=== PATIENT | male | born 1970 | race American Indian/Alaskan Native ===

== ENCOUNTER 2016-07-09 19:56 | Emergency (ER) | payer SELFPAY ==
[~2016-07-09] VITALS: Ht 180.3 cm; Wt 114.4 kg
[2016-07-09 19:58] VITALS: BP 178/108
[2016-07-09] MEDS ORDERED: HYDR12.53 PO (20:29)
[2016-07-09] MEDS ORDERED: LISI40TA PO (20:29)
== END 2016-07-09 21:22 | disposition home or self-care (01) ==
LOC: ED 20:49
DX: Z76.0 Encounter for issue of repeat prescription (principal); I10 Essential (primary) hypertension; R11.2 Nausea with vomiting, unspecified; G89.29 Other chronic pain; M54.6 Pain in thoracic spine; J45.909 Unspecified asthma, uncomplicated; Z90.49 Acquired absence of other specified parts of digestive tract
CPT/HCPCS: 99283

== ENCOUNTER 2017-01-24 19:08 | Inpatient (IN) | payer SELFPAY ==
[~2017-01-24] VITALS: Ht 180.3 cm; Wt 115.1 kg
[~2017-01-24 19:08] MED LIST: HYDR12.53 PO; LISI40TA PO
[2017-01-24] MEDS ORDERED: ASPIRIN 81 MG TABLET CHEW PO ONE (19:30)
[2017-01-24] MEDS ORDERED: ASPIRIN 81 MG TABLET CHEW ONE ×2 (19:32→19:37)
[2017-01-24] MEDS ORDERED: LISI-420 PO (19:48)
[2017-01-24 20:08] LABS: BLOOD UREA NITROGEN 15 mg/dL (7-18)
[2017-01-24 20:14] LABS: IS PT STATUS REG ER OR PRE ER? YES
[2017-01-24 20:16] LABS: ASPARTATE AMINO TRANSFERASE 92 U/L (15-37)
[2017-01-24 20:18] LABS: HEMATOCRIT 47.2 % (39.2-51.8); HEMOGLOBIN 16.4 g/dL (13.7-18.0); WHITE BLOOD COUNT 6.3 x10^3/uL (3.4-10)
[2017-01-24] MEDS ORDERED: HEPARIN 25,000 UNITS/500ML PMX 500 ML IV PRN ×3 (21:00→22:30)
[2017-01-24] MEDS ORDERED: HEPARIN 5,000 UNITS/ML, 1ML IV ONE (21:00)
[2017-01-24] MEDS ORDERED: METOPROLOL SUCCINATE 50 MG TAB.ER.24H PO STA (21:00)
[2017-01-24] MEDS ORDERED: HEPARIN 5,000 UNITS/ML, 1ML IV PRN ×2 (21:00→22:30)
[2017-01-24] MEDS ORDERED: HEPARIN 25,000 UNITS/500ML PMX 500 ML ONE (21:13)
[2017-01-24] MEDS ORDERED: HEPARIN 5,000 UNITS/ML, 1ML ONE (21:13)
[2017-01-24] MEDS ORDERED: morphine SULFATE 10 MG/ML, 1ML IVPush PRN (22:00)
[2017-01-24] MEDS ORDERED: ACETAMINOPHEN 325 MG TABLET PO PRN (22:00)
[2017-01-24] MEDS ORDERED: hydrALAzine 20 MG/ML, 1ML IV PRN (22:00)
[2017-01-24] MEDS: SODIUM CHLORIDE FLUSH 10ML SYR IVF SCH (22:00)
[2017-01-24] MEDS ORDERED: NITROGLYCERIN 0.4 MG BOTTLE (25 TABS) SL PRN (22:00)
[2017-01-24] MEDS ORDERED: ONDANSETRON 2MG/ML, 2ML IVPush PRN (22:00)
[2017-01-24] MEDS ORDERED: POLYETHYLENE GLYCOL 17 GM PACKET PO PRN (22:00)
[2017-01-24] MEDS ORDERED: BISACODYL 10 MG SUPP PR PRN (22:00)
[2017-01-24 22:25] VITALS: BP 160/100
[2017-01-25 02:00] VITALS: BP 125/87
[2017-01-25 02:09] LABS: IS PT STATUS REG ER OR PRE ER? NO
[2017-01-25 03:55] LABS: HEMATOCRIT 46.5 % (39.2-51.8); HEMOGLOBIN 15.9 g/dL (13.7-18.0); WHITE BLOOD COUNT 7.1 x10^3/uL (3.4-10)
[2017-01-25 04:07] LABS: ASPARTATE AMINO TRANSFERASE 60 U/L (15-37); BLOOD UREA NITROGEN 16 mg/dL (7-18)
[2017-01-25] MEDS ORDERED: FLU VACC QS2017-18 (36MOS+) UP/PF 0.5 ML IM-VACC ONE (06:30)
[2017-01-25] MEDS: CARVEDILOL 12.5 MG TABLET PO SCH ×3 (06:33→20:29)
[2017-01-25] MEDS: ASPIRIN 81 MG TABLET EC PO SCH (06:33)
[2017-01-25 08:02] LABS: IS PT STATUS REG ER OR PRE ER? NO
[2017-01-25 08:15] VITALS: BP 136/97
[2017-01-25] MEDS: SODIUM CHLORIDE FLUSH 10ML SYR IVF SCH ×2 (09:00→21:00)
[2017-01-25] MEDS: SENNA/DOCUSATE TABLET PO SCH (09:00)
[2017-01-25] MEDS: LISINOPRIL 20 MG TABLET PO SCH (11:54)
[2017-01-25] MEDS: HYDROCHLOROTHIAZIDE 12.5 MG CAPSULE PO SCH (11:54)
[2017-01-25] MEDS ORDERED: SODIUM CHLORIDE 0.9% 500 ML IV SCH (12:00)
[2017-01-25] MEDS ORDERED: ALBUTEROL/IPRATROPIUM 2.5MG/0.5MG, 3 ML ONE (13:26)
[2017-01-25] MEDS ORDERED: ALBUTEROL/IPRATROPIUM 2.5MG/0.5MG, 3 ML NPPB PRN (13:30)
[2017-01-25] MEDS ORDERED: TICAGRELOR 90 MG TABLET ONE (14:15)
[2017-01-25] MEDS ORDERED: MIDAZOLAM 1 MG/ML, 5ML ONE (14:15)
[2017-01-25] MEDS ORDERED: FENTANYL PF 100 MCG/2ML ONE (14:15)
[2017-01-25] MEDS ORDERED: BIVALIRUDIN 250 MG ONE (14:15)
[2017-01-25] MEDS ORDERED: VERAPAMIL 2.5 MG/ML, 2ML ONE (14:15)
[2017-01-25] MEDS ORDERED: LIDOCAINE 2%, 20ML ONE (14:16)
[2017-01-25 14:20] VITALS: BP 116/81
[2017-01-25 18:26] VITALS: BP 106/58
[2017-01-26 01:00] VITALS: BP 131/85
[2017-01-26 05:32] LABS: HEMATOCRIT 43.2 % (39.2-51.8); HEMOGLOBIN 14.8 g/dL (13.7-18.0)
[2017-01-26 05:41] LABS: BLOOD UREA NITROGEN 18 mg/dL (7-18)
[2017-01-26 05:46] LABS: ASPARTATE AMINO TRANSFERASE 55 U/L (15-37)
[2017-01-26 08:00] VITALS: BP 129/86
[2017-01-26] MEDS ORDERED: POTASSIUM CHLORIDE 20 MEQ TAB.ER.PRT PO ONE ×2 (08:00→09:30)
[2017-01-26] MEDS: CARVEDILOL 12.5 MG TABLET PO SCH (08:05)
[2017-01-26] MEDS: HYDROCHLOROTHIAZIDE 12.5 MG CAPSULE PO SCH (08:05)
[2017-01-26] MEDS: ASPIRIN 81 MG TABLET EC PO SCH (08:05)
[2017-01-26] MEDS: SODIUM CHLORIDE FLUSH 10ML SYR IVF SCH (08:05)
[2017-01-26] MEDS: LISINOPRIL 20 MG TABLET PO SCH (08:06)
[2017-01-26] MEDS: SENNA/DOCUSATE TABLET PO SCH (08:06)
[2017-01-26] MEDS ORDERED: POTASSIUM CHLORIDE 20 MEQ TAB.ER.PRT PO SCH (08:30)
[2017-01-26] MEDS ORDERED: MAGNESIUM SULFATE PMX 2GM/50ML 50 ML IV ONE (08:30)
[2017-01-26] MEDS ORDERED: SPIRONOLACTONE 25 MG TABLET PO SCH (09:00)
[2017-01-26] MEDS ORDERED: SPIR25TA PO (09:21)
[2017-01-26] MEDS ORDERED: CARV12.543 PO (09:21)
[2017-01-26] MEDS ORDERED: SIMV5TAB5 PO (09:32)
[2017-01-26] MEDS ORDERED: PNEUMOCOCCAL 23 VACCINE IM-VACC ONE (13:00)
== END 2017-01-26 13:20 | disposition home or self-care (01) | DRG 287 ==
LOC: ED 20:52 → EDIP 21:00 → 5SO 22:04 → DCLOUNGE 01-26 12:59
PROVIDERS: ADMIT Family Medicine; ATTEND Family Medicine
PROC: 4A023N7 Measurement of Cardiac Sampling and Pressure, Left Heart, Percutaneous Approach (ICD-10-PCS; principal; 2017-01-25)
PROC: B2111ZZ Fluoroscopy of Multiple Coronary Arteries using Low Osmolar Contrast (ICD-10-PCS; 2017-01-25)
PROC: B2151ZZ Fluoroscopy of Left Heart using Low Osmolar Contrast (ICD-10-PCS; 2017-01-25)
DX: I11.0 Hypertensive heart disease with heart failure (principal); I42.8 Other cardiomyopathies; K76.1 Chronic passive congestion of liver; B15.9 Hepatitis A without hepatic coma; I16.9 Hypertensive crisis, unspecified; I50.20 Unspecified systolic (congestive) heart failure; G51.0 Bell's palsy; M54.9 Dorsalgia, unspecified; E78.1 Pure hyperglyceridemia; E87.6 Hypokalemia; F12.90 Cannabis use, unspecified, uncomplicated; F17.210 Nicotine dependence, cigarettes, uncomplicated; I10 Essential (primary) hypertension; I08.0 Rheumatic disorders of both mitral and aortic valves; J45.909 Unspecified asthma, uncomplicated; Z79.82 Long term (current) use of aspirin; Z79.899 Other long term (current) drug therapy; Z83.3 Family history of diabetes mellitus; Z91.14 Patient's other noncompliance with medication regimen; Z91.19 Patient's noncompliance with other medical treatment and regimen; Z90.49 Acquired absence of other specified parts of digestive tract; I51.7 Cardiomegaly
CPT/HCPCS: 36415; 70450; 80053; 80061; 80074; 83880; 84439; 84443; 84484; 85014; 85018; 85025; 85520; 90686; 90732; 93005; 93306; 93458; 94640; 96374; 99156; C1894; J0583; J1644; J2250; J3010; J3490; J3475; J7040; Q9967

== ENCOUNTER 2017-07-13 18:57 | Inpatient (IN) | payer OTHER ==
[~2017-07-13] VITALS: Ht 180.3 cm; Wt 111.6 kg
[~2017-07-13 18:57] MED LIST changes: +CARV12.543 PO; +LISI-420 PO; +SIMV5TAB5 PO; +SPIR25TA PO
[2017-07-13] MEDS ORDERED: ALBUTEROL HFA (19:21)
[2017-07-13] MEDS ORDERED: SODIUM CHLORIDE FLUSH 10ML SYR IVF ONE (19:30)
[2017-07-13 19:34] LABS: BASOPHILS # (AUTO) 0.02 x10^3/uL (0-0.1); BASOPHILS % (AUTO) 0 % (0-1); EOSINOPHILS # (AUTO) 0.18 x10^3/uL (0-0.4); EOSINOPHILS % (AUTO) 2 % (1-7); LYMPHOCYTES # (AUTO) 2.37 x10^3/uL (1-3.4); LYMPHOCYTES % (AUTO) 28 % (22-44); MD NO; MEAN CORPUSCULAR HEMOGLOBIN 30.4 pg (27.5-34.5); MEAN CORPUSCULAR HGB CONC 34.7 g/dL (33.2-36.2); MEAN CORPUSCULAR VOLUME 87.6 fL (81-97); MEAN PLATELET VOLUME 10.7 fL (7.4-10.4); MONOCYTES # (AUTO) 0.53 x10^3/uL (0.2-0.8); MONOCYTES % (AUTO) 6 % (2-9); NEUTROPHILS # (AUTO) 5.25 x10^3/uL (1.8-6.8); NEUTROPHILS % (AUTO) 63 % (42-75); PLATELET COUNT 177 x10^3/uL (130-400); RED BLOOD COUNT 5.37 x10^6/uL (4.38-5.82); RED CELL DISTRIBUTION WIDTH 13.5 % (9.4-14.8)
[2017-07-13 19:45] LABS: ANION GAP 6 mmol/L (5-15); CALCIUM 8.3 mg/dL (8.5-10.1); CHLORIDE 111 mmol/L (98-107); CREATININE 1.49 mg/dL (0.7-1.3)
[2017-07-13] MEDS ORDERED: METOPROLOL 1 MG/ML, 5ML ONE (21:25)
[2017-07-13] MEDS ORDERED: METOPROLOL 1 MG/ML, 5ML IVPush ONE (21:30)
[2017-07-13] MEDS ORDERED: LABETALOL 5MG/ML, 20ML IVPush PRN (23:30)
[2017-07-13] MEDS ORDERED: hydrALAzine 20 MG/ML, 1ML IVPush PRN (23:30)
[2017-07-13] MEDS ORDERED: morphine SULFATE 10 MG/ML, 1ML IVPush PRN (23:30)
[2017-07-13] MEDS ORDERED: DOCUSATE 100 MG CAPSULE PO PRN (23:30)
[2017-07-13] MEDS ORDERED: ONDANSETRON ODT 4 MG PO PRN (23:30)
[2017-07-13] MEDS ORDERED: NITROGLYCERIN 0.4 MG BOTTLE (25 TABS) SL PRN (23:30)
[2017-07-13 23:41] VITALS: BP 187/122
[2017-07-14] MEDS: SIMVASTATIN 5 MG TABLET PO SCH ×2 (00:07→20:12)
[2017-07-14] MEDS: ENOXAPARIN 40 MG/0.4 ML SQ SCH (00:08)
[2017-07-14] MEDS ORDERED: ACETAMINOPHEN 325 MG TABLET ONE (02:04)
[2017-07-14 02:11] VITALS: BP 178/118
[2017-07-14] MEDS: CARVEDILOL 12.5 MG TABLET PO SCH ×2 (04:56→17:50)
[2017-07-14 05:27] LABS: ANION GAP 9 mmol/L (5-15); CALCIUM 8.5 mg/dL (8.5-10.1); CHLORIDE 107 mmol/L (98-107)
[2017-07-14 05:28] LABS: BASOPHILS # (AUTO) 0.02 x10^3/uL (0-0.1); BASOPHILS % (AUTO) 0 % (0-1); CREATININE 1.15 mg/dL (0.7-1.3); EOSINOPHILS # (AUTO) 0.39 x10^3/uL (0-0.4); EOSINOPHILS % (AUTO) 5 % (1-7); LYMPHOCYTES # (AUTO) 2.89 x10^3/uL (1-3.4); LYMPHOCYTES % (AUTO) 39 % (22-44); MD NO; MEAN CORPUSCULAR HEMOGLOBIN 30.3 pg (27.5-34.5); MEAN CORPUSCULAR HGB CONC 34.8 g/dL (33.2-36.2); MEAN PLATELET VOLUME 10.5 fL (7.4-10.4); MONOCYTES # (AUTO) 0.54 x10^3/uL (0.2-0.8); MONOCYTES % (AUTO) 7 % (2-9); NEUTROPHILS # (AUTO) 3.54 x10^3/uL (1.8-6.8); NEUTROPHILS % (AUTO) 48 % (42-75); PLATELET COUNT 154 x10^3/uL (130-400); RED BLOOD COUNT 5.33 x10^6/uL (4.38-5.82); RED CELL DISTRIBUTION WIDTH 13.4 % (9.4-14.8)
[2017-07-14 06:51] VITALS: BP 159/107
[2017-07-14 08:21] LABS: TROPONIN I 0.721 ng/mL (0.000-0.045)
[2017-07-14] MEDS: SPIRONOLACTONE 25 MG TABLET PO SCH (09:42)
[2017-07-14] MEDS: LISINOPRIL 20 MG TABLET PO SCH (09:43)
[2017-07-14] MEDS: HYDROCHLOROTHIAZIDE 12.5 MG CAPSULE PO SCH (09:43)
[2017-07-14 09:44] VITALS: BP 153/107
[2017-07-14 11:28] LABS: TROPONIN I 0.787 ng/mL (0.000-0.045)
[2017-07-14] MEDS ORDERED: POTASSIUM CHLORIDE 20 MEQ TAB.ER.PRT PO ONE (12:00)
[2017-07-14 12:32] VITALS: BP 149/90
[2017-07-14] MEDS: ACETAMINOPHEN 325 MG TABLET PO PRN ×2 (12:35→17:50)
[2017-07-14 19:25] VITALS: BP 136/84
[2017-07-15 00:34] VITALS: BP_SYST 154; BP_SYST 161; BP_DIAS 103; BP_DIAS 104
[2017-07-15 05:08] LABS: BASOPHILS % (AUTO) 0 % (0-1); EOSINOPHILS # (AUTO) 0.48 x10^3/uL (0-0.4); EOSINOPHILS % (AUTO) 7 % (1-7); LYMPHOCYTES # (AUTO) 2.32 x10^3/uL (1-3.4); LYMPHOCYTES % (AUTO) 35 % (22-44); MD NO; MEAN CORPUSCULAR HEMOGLOBIN 29.9 pg (27.5-34.5); MEAN CORPUSCULAR HGB CONC 34.1 g/dL (33.2-36.2); MEAN CORPUSCULAR VOLUME 87.5 fL (81-97); MEAN PLATELET VOLUME 11.1 fL (7.4-10.4); MONOCYTES # (AUTO) 0.47 x10^3/uL (0.2-0.8); MONOCYTES % (AUTO) 7 % (2-9); NEUTROPHILS # (AUTO) 3.47 x10^3/uL (1.8-6.8); NEUTROPHILS % (AUTO) 51 % (42-75); PLATELET COUNT 160 x10^3/uL (130-400); RED BLOOD COUNT 5.57 x10^6/uL (4.38-5.82); RED CELL DISTRIBUTION WIDTH 13.4 % (9.4-14.8)
[2017-07-15 05:12] LABS: ANION GAP 7 mmol/L (5-15); CALCIUM 8.6 mg/dL (8.5-10.1); CHLORIDE 110 mmol/L (98-107)
[2017-07-15 05:13] LABS: CREATININE 1.01 mg/dL (0.7-1.3)
[2017-07-15 05:36] VITALS: BP 146/101
[2017-07-15] MEDS: ENOXAPARIN 40 MG/0.4 ML SQ SCH ×2 (05:37→05:40)
[2017-07-15] MEDS: CARVEDILOL 12.5 MG TABLET PO SCH (05:38)
[2017-07-15 08:16] VITALS: BP 151/99
[2017-07-15] MEDS: SPIRONOLACTONE 25 MG TABLET PO SCH (08:19)
[2017-07-15] MEDS: HYDROCHLOROTHIAZIDE 12.5 MG CAPSULE PO SCH (08:19)
[2017-07-15] MEDS: LISINOPRIL 20 MG TABLET PO SCH (08:19)
[2017-07-15] MEDS ORDERED: SIMV5TAB5 PO (09:55)
[2017-07-15] MEDS ORDERED: HYDR12.53 PO (09:55)
[2017-07-15] MEDS ORDERED: SPIR25TA PO (09:55)
[2017-07-15] MEDS ORDERED: CARV12.543 PO (09:55)
[2017-07-15] MEDS ORDERED: LISI40TA PO (09:55)
[2017-07-15] MEDS ORDERED: ALBU18HF INH (12:13)
== END 2017-07-15 14:06 | disposition home or self-care (01) | DRG 304 ==
LOC: ED 21:33 → EDIP 22:02 → 5SO 23:37
PROVIDERS: ADMIT Hospitalist; ATTEND Hospitalist
DX: I16.0 Hypertensive urgency (principal); N17.0 Acute kidney failure with tubular necrosis; I42.9 Cardiomyopathy, unspecified; I50.32 Chronic diastolic (congestive) heart failure; E11.65 Type 2 diabetes mellitus with hyperglycemia; E87.6 Hypokalemia; G44.219 Episodic tension-type headache, not intractable; J45.909 Unspecified asthma, uncomplicated; M54.9 Dorsalgia, unspecified; I35.1 Nonrheumatic aortic (valve) insufficiency; I11.0 Hypertensive heart disease with heart failure; I25.2 Old myocardial infarction; Z79.899 Other long term (current) drug therapy; Z83.3 Family history of diabetes mellitus; Z90.49 Acquired absence of other specified parts of digestive tract; Z91.14 Patient's other noncompliance with medication regimen; Z91.19 Patient's noncompliance with other medical treatment and regimen
CPT/HCPCS: 36415; 71045; 80048; 83880; 84484; 85025; 93005; 96374; C8929; J1650; J0360

== ENCOUNTER 2018-03-29 16:00 | Emergency (ER) | payer MEDICAID ==
[~2018-03-29] VITALS: Ht 180.3 cm; Wt 108.0 kg
[~2018-03-29 16:00] MED LIST changes: +ALBU18HF INH; +ALBUTEROL HFA; +HYDR12.517 PO; -HYDR12.53 PO
[2018-03-29 16:10] VITALS: BP 179/123
== END 2018-03-29 17:51 | disposition home or self-care (01) ==
LOC: ED 16:24
DX: M17.32 Unilateral post-traumatic osteoarthritis, left knee (principal); G89.11 Acute pain due to trauma; M25.562 Pain in left knee; I10 Essential (primary) hypertension; I25.2 Old myocardial infarction; E11.9 Type 2 diabetes mellitus without complications; J45.909 Unspecified asthma, uncomplicated; Z90.49 Acquired absence of other specified parts of digestive tract
CPT/HCPCS: 29530; 82962; 99283

== ENCOUNTER 2018-06-02 01:53 | Emergency (ER) | payer MEDICAID ==
[~2018-06-02] VITALS: Ht 181.6 cm; Wt 110.4 kg
[~2018-06-02 01:53] MED LIST changes: +SIMV5TAB14 PO; -SIMV5TAB5 PO
--- NOTE | 2018-06-02 02:10 | NUR ---
PROVIDER AT BEDSIDE TO EVAL.
--- NOTE | 2018-06-02 02:30 | NUR ---
PT C/O BRIGHT RED BLOOD IN STOOL FOR 1.5 WEEKS. STATES CLOTS WHEN WIPING. PT NOT ON BLOOD THINNERS. NO ACUTE DISTRESS AT THIS TIME. PT STATES 3 DAYS AGO, LBP BEGAN WITH NO INJURY. PT ABLE TO AMBULATE. BP IMPROVED FROM TRIAGE. PT TO XRAY.
[2018-06-02 02:37] LABS: BASOPHILS # (AUTO) 0.02 x10^3/uL (0-0.1); BASOPHILS % (AUTO) 0 % (0-1); EOSINOPHILS # (AUTO) 0.28 x10^3/uL (0-0.4); EOSINOPHILS % (AUTO) 4 % (1-7); LYMPHOCYTES # (AUTO) 1.96 x10^3/uL (1-3.4); LYMPHOCYTES % (AUTO) 26 % (22-44); MD NO; MEAN CORPUSCULAR HEMOGLOBIN 30.2 pg (27.5-34.5); MEAN CORPUSCULAR HGB CONC 34.7 g/dL (33.2-36.2); MEAN PLATELET VOLUME 10.3 fL (7.4-10.4); MONOCYTES # (AUTO) 0.42 x10^3/uL (0.2-0.8); MONOCYTES % (AUTO) 6 % (2-9); NEUTROPHILS # (AUTO) 4.95 x10^3/uL (1.8-6.8); NEUTROPHILS % (AUTO) 65 % (42-75); PLATELET COUNT 226 x10^3/uL (130-400); RED BLOOD COUNT 5.18 x10^6/uL (4.38-5.82); RED CELL DISTRIBUTION WIDTH 13.4 % (9.4-14.8)
[2018-06-02 02:46] LABS: ALANINE AMINOTRANSFERASE 56 U/L (12-78); ALBUMIN 3.8 g/dL (3.4-5.0); ANION GAP 5 mmol/L (5-15); CALCIUM 8.2 mg/dL (8.5-10.1); CHLORIDE 110 mmol/L (98-107); CREATININE 1.07 mg/dL (0.7-1.3)
[2018-06-02 02:49] LABS: ALKALINE PHOSPHATASE 63 U/L (45-117); BILIRUBIN,TOTAL 0.7 mg/dL (0.2-1.0); INTERNATIONAL NORMALIZED RATIO 0.96 (0.93-1.1); PROTHROMBIN TIME 10.1 Seconds (9.6-11.5)
[2018-06-02 04:00] VITALS: BP 158/102
[2018-06-02] MEDS ORDERED: DOXYCYCLINE 100MG TABLET ONE (04:41)
[2018-06-02] MEDS ORDERED: HEPARIN 5,000 UNITS/ML, 1ML ONE (04:41)
== END 2018-06-02 04:03 | disposition home or self-care (01) ==
LOC: ED 03:49
DX: K62.5 Hemorrhage of anus and rectum (principal); M54.5 Low back pain; E11.9 Type 2 diabetes mellitus without complications; I25.2 Old myocardial infarction; I10 Essential (primary) hypertension; J45.909 Unspecified asthma, uncomplicated
CPT/HCPCS: 36415; 72110; 80053; 85025; 85610; 85730; 93005; 99284

== ENCOUNTER 2018-09-09 21:06 | Emergency (ER) | payer SELFPAY ==
[~2018-09-09] VITALS: Ht 180.3 cm; Wt 107.4 kg
[2018-09-09 21:07] VITALS: BP 150/89
[2018-09-09] MEDS ORDERED: KETOROLAC 30 MG/1 ML ONE (21:27)
[2018-09-09] MEDS ORDERED: DIPHENHYDRAMINE 50 MG/ML, 1ML ONE (21:27)
[2018-09-09] MEDS ORDERED: PROCHLORPERAZINE 5 MG/ML, 2ML ONE (21:27)
[2018-09-09] MEDS ORDERED: KETOROLAC 30 MG/1 ML IM ONE (21:30)
[2018-09-09] MEDS ORDERED: DIPHENHYDRAMINE 50 MG/ML, 1ML IM ONE (21:30)
[2018-09-09] MEDS ORDERED: PROCHLORPERAZINE 5 MG/ML, 2ML IM ONE (21:30)
--- NOTE | 2018-09-09 21:33 | NUR ---
MEDICATED PER [facility] ORDERS, PT LAYING IN DARK ROOM IN NAD
--- NOTE | 2018-09-09 22:48 | NUR ---
PT STATES FEELS BETTER
== END 2018-09-09 23:38 | disposition home or self-care (01) ==
LOC: ED 21:37
DX: G43.C0 Periodic headache syndromes in child or adult, not intractable (principal); F17.200 Nicotine dependence, unspecified, uncomplicated; I10 Essential (primary) hypertension; I25.2 Old myocardial infarction; E11.9 Type 2 diabetes mellitus without complications; J45.909 Unspecified asthma, uncomplicated
CPT/HCPCS: 96372; 99283; J0780; J1200; J1885

== ENCOUNTER 2019-02-15 16:49 | Emergency (ER) | payer SELFPAY ==
[~2019-02-15] VITALS: Ht 180.3 cm; Wt 107.4 kg
[2019-02-15] MEDS ORDERED: CARVEDILOL 3.125 MG TABLET ONE (17:55)
[2019-02-15] MEDS ORDERED: CARVEDILOL 12.5 MG TABLET PO ONE (18:00)
[2019-02-15 18:06] LABS: ALBUMIN 3.7 g/dL (3.4-5.0); ANION GAP 3 mmol/L (5-15); CALCIUM 8.7 mg/dL (8.5-10.1); CHLORIDE 112 mmol/L (98-107); CREATININE 1.05 mg/dL (0.7-1.3)
[2019-02-15 18:18] LABS: BASOPHILS # (AUTO) 0.01 x10^3/uL (0-0.1); BASOPHILS % (AUTO) 0 % (0-1); EOSINOPHILS # (AUTO) 0.26 x10^3/uL (0-0.4); EOSINOPHILS % (AUTO) 4 % (1-7); LYMPHOCYTES % (AUTO) 29 % (22-44); MD SCAN; MEAN CORPUSCULAR HEMOGLOBIN 29.9 pg (27.5-34.5); MEAN CORPUSCULAR HGB CONC 34.1 g/dL (33.2-36.2); MEAN CORPUSCULAR VOLUME 87.5 fL (81-97); MEAN PLATELET VOLUME 10.8 fL (7.4-10.4); MONOCYTES # (AUTO) 0.33 x10^3/uL (0.2-0.8); MONOCYTES % (AUTO) 5 % (2-9); NEUTROPHILS # (AUTO) 3.84 x10^3/uL (1.8-6.8); NEUTROPHILS % (AUTO) 62 % (42-75); PLATELET COUNT 164 x10^3/uL (130-400); RED BLOOD COUNT 5.36 x10^6/uL (4.38-5.82)
[2019-02-15 18:29] VITALS: BP 146/92
== END 2019-02-15 19:00 ==
LOC: ED 18:52
DX: I42.9 Cardiomyopathy, unspecified (principal); I10 Essential (primary) hypertension; F17.200 Nicotine dependence, unspecified, uncomplicated; I25.2 Old myocardial infarction; E11.9 Type 2 diabetes mellitus without complications; J45.909 Unspecified asthma, uncomplicated
CPT/HCPCS: 36415; 71045; 80048; 82040; 83880; 85025; 93005; 99284

== ENCOUNTER 2019-07-07 04:02 | Inpatient (IN) | payer OTHER ==
[~2019-07-07] VITALS: Ht 180.3 cm; Wt 101.9 kg
--- NOTE | 2019-07-07 04:15 | NUR ---
c/o sob x2 days, placed cardiac and vitals signs monitors. fall precautions in place.
--- NOTE | 2019-07-07 04:54 | NUR ---
ERP at bedside for eval.
[2019-07-07 05:02] LABS: BASOPHILS # (AUTO) 0.03 x10^3/uL (0-0.1); BASOPHILS % (AUTO) 0 % (0-1); EOSINOPHILS # (AUTO) 0.22 x10^3/uL (0-0.4); EOSINOPHILS % (AUTO) 3 % (1-7); LYMPHOCYTES # (AUTO) 2.02 x10^3/uL (1-3.4); LYMPHOCYTES % (AUTO) 28 % (22-44); MD NO; MEAN CORPUSCULAR HEMOGLOBIN 29.8 pg (27.5-34.5); MEAN CORPUSCULAR HGB CONC 33.7 g/dL (33.2-36.2); MEAN CORPUSCULAR VOLUME 88.4 fL (81-97); MEAN PLATELET VOLUME 11.1 fL (7.4-10.4); MONOCYTES # (AUTO) 0.51 x10^3/uL (0.2-0.8); MONOCYTES % (AUTO) 7 % (2-9); NEUTROPHILS # (AUTO) 4.35 x10^3/uL (1.8-6.8); NEUTROPHILS % (AUTO) 61 % (42-75); PLATELET COUNT 161 x10^3/uL (130-400); RED BLOOD COUNT 5.56 x10^6/uL (4.38-5.82); RED CELL DISTRIBUTION WIDTH 13.9 % (9.4-14.8)
[2019-07-07 05:17] LABS: ALBUMIN 3.9 g/dL (3.4-5.0); ANION GAP 9 mmol/L (5-15); CALCIUM 9.1 mg/dL (8.5-10.1); CHLORIDE 108 mmol/L (98-107)
[2019-07-07 05:23] LABS: ALANINE AMINOTRANSFERASE 46 U/L (12-78); ALKALINE PHOSPHATASE 82 U/L (45-117); BILIRUBIN,TOTAL 1.2 mg/dL (0.2-1.0); CREATININE 1.09 mg/dL (0.7-1.3); TOTAL PROTEIN 8.7 g/dL (6.4-8.2)
[2019-07-07 05:31] LABS: TROPONIN I 0.667 ng/mL (0.000-0.045)
--- NOTE | 2019-07-07 05:31 | NUR ---
TROP 0.667, NOTIFIED
--- NOTE | 2019-07-07 05:35 | NUR ---
Resting on gurney in no acute distress, denies chest pain. VSS.
[2019-07-07] MEDS ORDERED: ASPIRIN 81 MG TABLET CHEW ONE (05:36)
[2019-07-07] MEDS ORDERED: ASPIRIN 81 MG TABLET CHEW PO ONE (06:00)
[2019-07-07] MEDS ORDERED: SODIUM CHLORIDE FLUSH 10ML SYR IVF PRN (06:30)
--- NOTE | 2019-07-07 07:01 | NUR ---
RESTING ON GURNEY, WATCHING TV, NO DISTRESS NOTED. VSS.
--- NOTE | 2019-07-07 07:10 | NUR ---
REPORT RECEIVED FROM CADENCE ISLAS. ASSUMED CARE
[2019-07-07] MEDS ORDERED: ZOLPIDEM 5MG TABLET PO PRN (08:00)
[2019-07-07] MEDS ORDERED: GUAIFENESIN/DM 200-20MG, 10ML UDC PO PRN (08:00)
[2019-07-07] MEDS ORDERED: BISACODYL 10 MG SUPP PR PRN (08:00)
[2019-07-07] MEDS ORDERED: LIDODERM 5% PATCH TD PRN (08:00)
[2019-07-07] MEDS ORDERED: ACETAMINOPHEN 325 MG TABLET PO PRN (08:00)
[2019-07-07] MEDS ORDERED: POLYETHYLENE GLYCOL 17 GM PACKET PO PRN (08:00)
[2019-07-07] MEDS ORDERED: ONDANSETRON 2MG/ML, 2ML IVPush PRN (08:00)
[2019-07-07] MEDS ORDERED: NITROGLYCERIN 0.4 MG BOTTLE (25 TABS) SL PRN (08:00)
[2019-07-07] MEDS ORDERED: hydrALAzine 20 MG/ML, 1ML IVPush PRN (08:00)
[2019-07-07 08:08] LABS: HCT (SEDRATE) 47.6 % (39.2-51.8)
[2019-07-07 08:16] LABS: FREE T4 (FREE THYROXINE) 1.23 ng/dL (0.76-1.46)
[2019-07-07 08:20] LABS: TROPONIN I 0.627 ng/mL (0.000-0.045)
[2019-07-07 08:41] VITALS: BP 174/119
[2019-07-07 09:01] VITALS: BP 162/115
[2019-07-07] MEDS: methylPREDNISolone SOD SUCC 125 MG/2 ML IVPush SCH ×3 (10:00→20:16)
[2019-07-07] MEDS: ENOXAPARIN 40 MG/0.4 ML SQ SCH (10:01)
[2019-07-07] MEDS: FAMOTIDINE 20 MG TABLET PO SCH ×2 (10:01→20:16)
[2019-07-07] MEDS: LISINOPRIL 40 MG TABLET PO SCH (10:01)
[2019-07-07] MEDS: HYDROCHLOROTHIAZIDE 12.5 MG CAPSULE PO SCH (10:01)
[2019-07-07] MEDS: SPIRONOLACTONE 25 MG TABLET PO SCH (10:01)
[2019-07-07] MEDS: ALBUTEROL SULFATE 2.5 MG/3 ML NPPB SCH (11:30)
[2019-07-07] MEDS ORDERED: ALBUTEROL SULFATE 2.5 MG/3 ML NPPB PRN (12:30)
[2019-07-07 15:08] VITALS: BP 156/96
[2019-07-07 19:28] VITALS: BP 169/83
[2019-07-07] MEDS ORDERED: SIMVASTATIN 5 MG TABLET PO SCH (21:00)
[2019-07-08 01:51] VITALS: BP 137/84
[2019-07-08] MEDS: methylPREDNISolone SOD SUCC 125 MG/2 ML IVPush SCH ×3 (02:44→14:19)
[2019-07-08 05:47] LABS: ALANINE AMINOTRANSFERASE 43 U/L (12-78); ANION GAP 7 mmol/L (5-15); CALCIUM 9.9 mg/dL (8.5-10.1); CHLORIDE 107 mmol/L (98-107); CHOLESTEROL, TOTAL 197 mg/dL (140-239); CREATININE 1.23 mg/dL (0.7-1.3)
[2019-07-08 05:50] LABS: ALKALINE PHOSPHATASE 72 U/L (45-117); BILIRUBIN,TOTAL 1.9 mg/dL (0.2-1.0); CHOL/HDL RATIO 3.3; HDL CHOL % 30 % (26-37); HDL CHOLESTEROL (DIRECT) 59 mg/dL (40-60); LDL CHOLESTEROL,CALCULATED 121 mg/dL (54-169); LDL/HDL RATIO 2.1 (0.5-3.0); TRIGLYCERIDES 86 mg/dL (50-200); VLDL CHOLESTEROL 17 mg/dL (0-25)
[2019-07-08] MEDS ORDERED: ASPIRIN 325 MG TABLET EC PO SCH (06:00)
[2019-07-08 06:03] LABS: MEAN CORPUSCULAR HEMOGLOBIN 29.5 pg (27.5-34.5); MEAN CORPUSCULAR HGB CONC 33.6 g/dL (33.2-36.2); MEAN CORPUSCULAR VOLUME 87.7 fL (81-97); MEAN PLATELET VOLUME 11.8 fL (7.4-10.4); PLATELET COUNT 169 x10^3/uL (130-400); RED BLOOD COUNT 5.91 x10^6/uL (4.38-5.82); RED CELL DISTRIBUTION WIDTH 13.9 % (9.4-14.8)
[2019-07-08 06:29] LABS: BASOPHILS # (AUTO) 0.01 x10^3/uL (0-0.1); BASOPHILS % (AUTO) 0 % (0-1); EOSINOPHILS # (AUTO) 0.12 x10^3/uL (0-0.4); EOSINOPHILS % (AUTO) 1 % (1-7); LYMPHOCYTES # (AUTO) 1.12 x10^3/uL (1-3.4); LYMPHOCYTES % (AUTO) 8 % (22-44); MD SCAN; MONOCYTES # (AUTO) 0.09 x10^3/uL (0.2-0.8); MONOCYTES % (AUTO) 1 % (2-9); NEUTROPHILS % (AUTO) 90 % (42-75)
[2019-07-08 07:30] VITALS: BP 133/80
[2019-07-08] MEDS: ENOXAPARIN 40 MG/0.4 ML SQ SCH (08:08)
[2019-07-08] MEDS: FAMOTIDINE 20 MG TABLET PO SCH (08:09)
[2019-07-08] MEDS: SPIRONOLACTONE 25 MG TABLET PO SCH (08:09)
[2019-07-08] MEDS: HYDROCHLOROTHIAZIDE 12.5 MG CAPSULE PO SCH (08:09)
[2019-07-08] MEDS: LISINOPRIL 40 MG TABLET PO SCH (08:09)
[2019-07-08 13:12] VITALS: BP 114/66
[2019-07-08] MEDS ORDERED: ALBU18HF INH (14:01)
[2019-07-08] MEDS ORDERED: TIOT18CA INH (14:01)
== END 2019-07-08 15:31 | disposition home or self-care (01) | DRG 202 ==
LOC: ED 04:15 → EDIP 06:30 → 4WST 08:30
PROVIDERS: ADMIT Hospitalist; ATTEND Hospitalist
DX: J45.41 Moderate persistent asthma with (acute) exacerbation (principal); I42.8 Other cardiomyopathies; E11.9 Type 2 diabetes mellitus without complications; E78.5 Hyperlipidemia, unspecified; F12.90 Cannabis use, unspecified, uncomplicated; I10 Essential (primary) hypertension; I16.0 Hypertensive urgency; I25.2 Old myocardial infarction; Z82.49 Family history of ischemic heart disease and other diseases of the circulatory system; Z91.19 Patient's noncompliance with other medical treatment and regimen; Z90.49 Acquired absence of other specified parts of digestive tract
CPT/HCPCS: 36415; 99285; J7613; 71045; 80053; 80061; 83036; 83880; 84439; 84443; 84484; 85025; 85651; 93005; 93306; 94640; G0378; J1650; J0360; J2930

== ENCOUNTER 2020-10-19 02:14 | Emergency (ER) | payer MEDICAID ==
[~2020-10-19] VITALS: Ht 180.3 cm; Wt 108.0 kg
[~2020-10-19 02:14] MED LIST changes: -LISI-420 PO; +LISI20TA21 PO; -LISI40TA PO; +LISI40TA9 PO; +TIOT18CA INH
[2020-10-19 02:25] VITALS: BP 150/86
== END 2020-10-19 03:23 | disposition home or self-care (01) ==
LOC: ED 02:30
DX: M17.0 Bilateral primary osteoarthritis of knee (principal); M25.561 Pain in right knee; M25.562 Pain in left knee; I10 Essential (primary) hypertension; E11.9 Type 2 diabetes mellitus without complications; I25.2 Old myocardial infarction; J45.909 Unspecified asthma, uncomplicated; M19.90 Unspecified osteoarthritis, unspecified site; Z87.891 Personal history of nicotine dependence; Z90.49 Acquired absence of other specified parts of digestive tract
CPT/HCPCS: 99283

== ENCOUNTER 2020-11-02 09:00 | Emergency (ER) | payer MEDICAID ==
[~2020-11-02] VITALS: Ht 180.3 cm; Wt 109.8 kg
[~2020-11-02 09:00] MED LIST changes: +AMLO-150 PO; +ATOR40TA78 PO; +CARV12.52 PO; +DOXA1TAB PO; +FENO145T19 PO; +HYDR12.59 PO; +METF-754 PO; +SIMV10TA18 PO
[2020-11-02 09:19] VITALS: BP 106/79
--- NOTE | 2020-11-02 09:32 | NUR ---
bilat knee pain x4 days, has a hx of arthritis, denies injury. +ambulatory NO GROSS DEFORMITY
[2020-11-02] MEDS ORDERED: IBUPROFEN 600 MG TABLET ONE (09:43)
--- NOTE | 2020-11-02 09:50 | NUR ---
PT TO XRAY
[2020-11-02] MEDS ORDERED: IBUPROFEN 800 MG TABLET PO ONE (10:00)
--- NOTE | 2020-11-02 11:21 | NUR ---
Patient given discharge instructions and they have confirmed that they understand the instructions. Patient ambulatory with steady gait.
== END 2020-11-02 11:23 | disposition home or self-care (01) ==
LOC: ED 10:38
DX: M25.461 Effusion, right knee (principal); M25.561 Pain in right knee; I25.2 Old myocardial infarction; J45.909 Unspecified asthma, uncomplicated; E11.9 Type 2 diabetes mellitus without complications; I10 Essential (primary) hypertension; M19.90 Unspecified osteoarthritis, unspecified site; Z90.49 Acquired absence of other specified parts of digestive tract
CPT/HCPCS: 99283

== ENCOUNTER 2020-12-28 00:59 | Emergency (ER) | payer MEDICAID ==
[~2020-12-28] VITALS: Ht 180.3 cm; Wt 105.4 kg
[2020-12-28 01:03] VITALS: BP 143/87
[2020-12-28 01:39] LABS: BASOPHILS % (AUTO) 0 % (0-1); EOSINOPHILS % (AUTO) 5 % (1-7); LYMPHOCYTES % (AUTO) 31 % (22-44); MEAN CORPUSCULAR HEMOGLOBIN 30.9 pg (27.5-34.5); MEAN CORPUSCULAR HGB CONC 35.3 g/dL (33.2-36.2); MEAN PLATELET VOLUME 10.6 fL (7.4-10.4); MONOCYTES % (AUTO) 7 % (2-9); NEUTROPHILS % (AUTO) 56 % (42-75); PLATELET COUNT 150 x10^3/uL (130-400); RED BLOOD COUNT 4.71 x10^6/uL (4.38-5.82); RED CELL DISTRIBUTION WIDTH 13.2 % (9.4-14.8)
[2020-12-28 01:45] LABS: ALANINE AMINOTRANSFERASE 38 U/L (12-78); ALBUMIN 3.6 g/dL (3.4-5.0); ANION GAP 4 mmol/L (5-15); CALCIUM 9.2 mg/dL (8.5-10.1); CHLORIDE 96 mmol/L (98-107); CREATININE 1.66 mg/dL (0.7-1.3)
[2020-12-28 01:47] LABS: ALKALINE PHOSPHATASE 98 U/L (45-117); TOTAL PROTEIN 8.4 g/dL (6.4-8.2)
--- NOTE | 2020-12-28 01:55 | NUR ---
AMBULATORY FROM WAITING ROOM.
--- NOTE | 2020-12-28 01:55 | NUR ---
pt called to room from lobby
[2020-12-28] MEDS ORDERED: INSULIN SINGLE DOSE, ER ONE (02:43)
[2020-12-28] MEDS ORDERED: INSULIN REGULAR 100 UNITS/ML, 3ML VIAL IVPush ONE (03:00)
[2020-12-28] MEDS ORDERED: SODIUM CHLORIDE 0.9% 1,000ML IVBOLUS ONE (03:00)
--- NOTE | 2020-12-28 03:30 | NUR ---
REPEAT BGL 352. PT AMBULATORY TO BATHROOM.
--- NOTE | 2020-12-28 03:38 | NUR ---
Patient/Caregiver given discharge instructions and they have confirmed that they understand the instructions. Patient ambulatory with steady gait. NAD, all questions answered appropriately, denies additional needs at this time. No personal belongings left in room after discharge.
== END 2020-12-28 03:40 | disposition home or self-care (01) ==
LOC: ED 01:15
DX: K92.1 Melena (principal); N28.9 Disorder of kidney and ureter, unspecified; E10.65 Type 1 diabetes mellitus with hyperglycemia; J45.909 Unspecified asthma, uncomplicated; M19.90 Unspecified osteoarthritis, unspecified site; E11.9 Type 2 diabetes mellitus without complications; I25.2 Old myocardial infarction; I10 Essential (primary) hypertension
CPT/HCPCS: 36415; 80053; 82962; 85025; 96361; 96374; 99283; J1815; J7030